=== PATIENT | female | born 1990 | race Caucasian/White ===

== ENCOUNTER 2019-02-07 10:25 | Emergency (ER) | payer BC ==
[2019-02-07 11:58] VITALS: BP 178/111
--- NOTE | 2019-02-07 12:09 | ED ---
Throat Pain/Nasal Congestion - HPI Summary HPI Summary: Patient is a 28-year-old female with a history of anxiety presenting to the ED with bilateral sinus pressure and tenderness for the past week. She states she thought this was allergies, but this continues to worsen. She does endorse rhinorrhea with clear discharge. She denies any fevers, sweats, chills. She states she saw the school nurse today who was concerned due to stating "one pupil was bigger than the other." She states due to her anxiety, this made her feel very dizzy which made the school nurse states she could be having more severe conditions such as a brain tumor. She states she had someone drive her to the ED as she was tearful. Her complaint at this time is severe anxiety as well as sinus pressure. She denies any dizziness. Denies any visual changes, headache, cough, congestion. Denies any ear pain or pressure. She does endorse intermittent ringing in the ears. - History of Current Complaint Chief Complaint: EDDizziness Time Seen by Provider: 02/07/19 11:38 Hx Obtained From: Patient Onset/Duration: Sudden Onset Severity: Moderate Associated Signs And Symptoms: Positive: Negative - Epiglottits Risk Factors Epiglottis Risk Factors: Negative - Allergies/Home Medications Allergies/Adverse Reactions: Allergies Allergy/AdvReac Type Severity Reaction Status Date / Time No Known Allergies Allergy Verified 02/07/19 10:27 Home Medications: Home Medications Sertraline* [Zoloft*] 50 mg PO DAILY 02/07/19 [History Confirmed 02/07/19] PMH/Surg Hx/FS Hx/Imm Hx Previously Healthy: Yes - Immunization History Hx Pertussis Vaccination: No Immunizations Up to Date: Yes Infectious Disease History: No Infectious Disease History: Denies: Traveled Outside the [place] in Last 30 Days - Social History Occupation: Employed Full-time Lives: With Family Alcohol Use: None Hx Substance Use: No Substance Use Type: Reports: None Hx Tobacco Use: No Smoking Status (MU): Never Smoked Tobacco Review of Systems Constitutional: Negative Negative: Fever, Chills, Fatigue, Skin Diaphoresis Positive: Nasal Discharge - and bilateral maxillar tenderness Negative: Palpitations, Chest Pain Negative: Shortness Of Breath, Cough Genitourinary: Negative Positive: no symptoms reported, see HPI Negative: Arthralgia, Myalgia Skin: Negative Neurological: Negative All Other Systems Reviewed And Are Negative: Yes Physical Exam Triage Information Reviewed: Yes Vital Signs On Initial Exam: Initial Vitals Temp Pulse Resp BP Pulse Ox 98.4 F 120 18 176/101 100 02/07/19 10:27 02/07/19 10:27 02/07/19 10:27 02/07/19 10:27 02/07/19 10:27 Vital Signs Reviewed: Yes Appearance: Positive: Well-Appearing, Well-Nourished Skin: Positive: Skin Color Reflects Adequate Perfusion Head/Face: Positive: Normal Head/Face Inspection Eyes: Positive: EOMI, Conjunctiva Clear ENT: Positive: Nasal congestion, Sinus tenderness. Negative: TM red, Tonsillar swelling, Tonsillar exudate, Dental tenderness, Uvula midline Neck: Positive: Supple, No Lymphadenopathy Respiratory/Lung Sounds: Positive: Clear to Auscultation, Breath Sounds Present Cardiovascular: Positive: RRR, Pulses are Symmetrical in both Upper and Lower Extremities Musculoskeletal: Positive: Strength/ROM Intact Neurological: Positive: Speech Normal Psychiatric: Positive: Anxious AVPU Assessment: Alert Diagnostics - Vital Signs Vital Signs Temp Pulse Resp BP Pulse Ox 02/07/19 11:45 125 99 02/07/19 11:44 132 178/111 100 02/07/19 10:27 98.4 F 120 18 176/101 100 - Laboratory Lab Statement: Any lab studies that have been ordered have been reviewed, and results considered in the medical decision making process. EENT Course/Dx - Course Course Of Treatment: During this course of treatment, the patient is evaluated for severe anxiety and bilateral maxillary sinus tenderness and pressure. She states she was dizzy prior to arrival due to her anxiety, but denies this currently. She denies any headache. On physical examination, patient is ED and states this typical for her when she has so much anxiety, stating " whitecoat syndrome." Lungs CTA, RRR, maxillary sinus tenderness bilaterally without evidence of fluctuation. Afebrile. - Diagnoses Provider Diagnoses: Sinusitis Discharge - Sign-Out/Discharge Documenting (check all that apply): Patient Departure Patient Received Moderate/Deep Sedation with Procedure: No - Discharge Plan Condition: Stable Disposition: HOME Prescriptions: Amoxicillin/Clavulanate TAB* [Augmentin TAB 875*] 875 mg PO BID #10 tab Patient Education Materials: Sinusitis (ED) Referrals: No Primary Care Phys,NOPCP [Primary Care Provider] - Additional Instructions: I believe you have inflammation of year sinus nodes, this could develop into a sinusitis or a sinus infection Augmentin twice daily 5 days if you develop any worsening or changing symptoms, return to the ED immediately - Billing Disposition and Condition Condition: STABLE Disposition: Home
== END 2019-02-07 12:01 | disposition home or self-care (01) ==
LOC: ED 10:25
DX: J32.9 Chronic sinusitis, unspecified (principal)
CPT/HCPCS: 99282